=== PATIENT | male | born 1965 | race African-American/Black ===

== ENCOUNTER 2016-09-12 15:21 | Emergency (ER) | payer OTHER ==
--- NOTE | ~2016-09-12 | CR72 ---
[facility] A Service of [facility] RADIOLOGY TEXT RESULTS PATIENT: MELANY LAGOS LOCATION: [facility] : 61 UNIT #: [id number] AGE: [address]: Isaiah Palacios MD SEX: M ORDER DR: [id number] [facility] [address] [place], [place] [address] [id number] E MR#: [id number] Acc #: [id number] NAME: MELANY LAGOS : 1965 SEX: M STUDY DATE/TIME: 09/12/2016 15:27 UNIT: [facility] ROOM: STUDY DESCRIPTION: CR Chest Single View Portable Attending Physician: Isaiah Palacios M.D. Ordering Physician: Ed Doctor [id number] [facility] Primary Care Physician: Primary Care Physician No MEDICAL IMAGING REPORT This report is preliminary unless electronic signature is present EXAM Portable chest x-ray 09/12/2016 HISTORY Weakness. Night sweats, pain in arm, rash over upper torso few weeks duration. Prior history of HIV/AIDS. FINDINGS AP radiograph of the chest is presented. Comparison chest radiograph 06/22/2016, and comparison chest CT 06/24/2016. The heart and mediastinum are normal in size and contour. The lungs are well inflated. Superimposed over the posterior right fourth rib and anterior right second rib, there is a subtle 9 mm nodular density. Not seen on prior chest radiographs and not seen on a CT of the chest dated 06/24/2016. This is probably a superimposition artifact related to pulmonary vessels and bony structures but a true developing nodule in this patient with a history of immune compromise cannot be entirely excluded. Repeat CT examination recommended for clarification. The lungs are otherwise clear. There is no pleural effusion or pneumothorax. Bony structures show no acute abnormality. Dictated by... Ag Aceves M.D. THIS IS AN ELECTRONICALLY VERIFIED REPORT Ag Aceves M.D. at 09/13/2016 6:36 PM Joy TD: 09/12/2016 21:00 JOB #: [id number] [facility] A Service of [facility] & [facility] RADIOLOGY TEXT RESULTS PATIENT: MELANY LAGOS LOCATION: [facility] : 61 UNIT #: [id number] AGE: [address]: Isaiah Palacios MD SEX: M ORDER DR: MEDICAL IMAGING REPORT Page 1 of 1 COPY
--- NOTE | ~2016-09-12 | EKG ---
PATIENT: MELANY LAGOS UNIT #: [id number] Ventricular Rate: 96 BPM Atrial Rate: 96 BPM P-R Interval: 150 ms QRS Duration: 70 ms Q-T Interval: 370 ms QTC Calculation(Bezet): 467 ms P [place]: 79 degrees Calculated R [place]: 66 degrees Calculated T [place]: 66 degrees Diagnosis Line: Normal sinus rhythm Diagnosis Line: Normal ECG Diagnosis Line: When compared with ECG of 29-APR-2016 16:51, Diagnosis Line: Nonspecific T wave abnormality, improved in Diagnosis Line: Lateral leads Diagnosis Line: Confirmed by JAYLENE LIM MD ([id number]) on 09/12/2016 Diagnosis Line: 11:41:18 PM INTERPRETING MD: CARINA ARMENTA
[~2016-09-12 15:21] MED LIST: COMBIVENT U/D3 M2 INH; EMTRIVA200 MG PO; HYDROXYZINE HCL25 M1 PO; KEFLEX500 M2 PO; PREDNISONE PO; ROCEPHIN IV; TOPROL XL PO; ZOLOFT50 MG PO; [UNRECOGNIZED DRUG - OTHER] PO; [UNRECOGNIZED DRUG - OTHER] PO
[2016-09-12 17:15] LABS: BASOPHIL% 0.4 % (0-2.5); DIFF IND YES; EOSINOPHIL# 2.6 X10e3 (0-0.7); EOSINOPHIL% 35.4 % (0.0-7.0); HEMATOCRIT 37.1 % (38.0-50.0); LYMPHOCYTE# 0.6 X10e3 (1.0-3.5); LYMPHOCYTE% 8.7 % (17.0-45.0); MEAN CELL VOLUME 89.8 FL (83-96); MEAN CORPUSCULAR HEMOGLOBIN 29.1 PG (28-34); MEAN CORPUSCULAR HGB CONC 32.4 g/dL (30-36); MEAN PLATELET VOLUME 8.8 FL (6.5-11.5); MONOCYTE# 0.6 X10e3 (0-1.0); MONOCYTE% 8.8 % (3.0-12.0); NEUTROPHIL# 3.4 X10e3 (1.5-7.1); NEUTROPHIL% 46.7 % (40-75); PLATELET COUNT 296 X10e3 (140-420); RED BLOOD COUNT 4.13 X10e (3.90-5.60); RED CELL DISTRIBUTION WIDTH 13.5 % (11.0-15.5); WHITE BLOOD COUNT 7.2 X10e3 (4.0-10.5)
[2016-09-12 17:30] LABS: ALBUMIN SERUM 2.3 g/dL (3.5-5.0); BILIRUBIN, DIRECT 0.2 mg/dL (0.0-0.2); BILIRUBIN,INDIRECT 0.4 mg/dL (0.0-0.9); BILIRUBIN,TOTAL 0.6 mg/dL (0.2-2.0); BUN/CREATININE RATIO 13.75; CALCIUM SERUM 7.6 mg/dL (8.4-10.2); CREATININE SERUM 0.8 mg/dL (0.6-1.4); GLOM FILT RATE Estimated 118.3 mL/min (>60); POTASSIUM 4.8 mmol/L (3.5-5.1); PROTEIN TOTAL SERUM 6.5 g/dL (6.0-8.3)
[2016-09-12 17:40] LABS: PLATELET ESTIMATE NORMAL (NORMAL)
[2016-09-12 18:04] LABS: URINE SOURCE CLEAN CATCH
[2016-09-12 18:15] LABS: URINE APPEARANCE CLEAR; URINE BILIRUBIN NEG (NEG); URINE BLOOD NEG (NEG); URINE COLOR YELLOW; URINE GLUCOSE NEG (NEG); URINE KETONE NEG (NEG); URINE LEUKOCYTE ESTERASE 2+ (NEG); URINE NITRATE NEG (NEG); URINE PROTEIN NEG (NEG); URINE SPECIFIC GRAVITY 1.018 (1.003-1.035)
[2016-09-12 18:18] LABS: CULTURE INDICATED? YES; URBCS1 AUWI 0-2 /[HPF] (0-2); URINE BACTERIA AUWI NEG (NEGATIVE); URINE SQUAMOUS EPITHELIAL CELL OCC /[HPF]
== END 2016-09-12 19:00 | disposition home or self-care (01) ==
LOC: CED 15:21
PROVIDERS: Emergency Medicine
DX: R21 Rash and other nonspecific skin eruption (principal); B20 Human immunodeficiency virus [HIV] disease; J45.909 Unspecified asthma, uncomplicated; I10 Essential (primary) hypertension; F41.9 Anxiety disorder, unspecified; Z79.899 Other long term (current) drug therapy
CPT/HCPCS: 36415; 71010; 80048; 80076; 81003; 82947; 85025; 87086; 93005; 99283

== ENCOUNTER 2016-09-21 16:00 | Emergency (ER) | payer OTHER ==
--- NOTE | ~2016-09-21 | CR72 ---
[facility] A Service of [facility] & [facility] RADIOLOGY TEXT RESULTS PATIENT: MELANY LAGOS LOCATION: [facility] : 61 UNIT #: [id number] AGE: [address]: Lamberto Garcia MD SEX: M ORDER DR: [id number] [facility] [address] [place], [place] [address] [id number] E MR#: [id number] Acc #: [id number] NAME: MELANY LAGOS : 1965 SEX: M STUDY DATE/TIME: 09/21/2016 14:58 UNIT: [facility] ROOM: STUDY DESCRIPTION: CR Chest Single View Portable Attending Physician: Lamberto Garcia M.D. Ordering Physician: Lamberto Garcia M.D. Primary Care Physician: No Primary Care Physician MEDICAL IMAGING REPORT This report is preliminary unless electronic signature is present EXAM Frontal chest 09/21/2016 INDICATIONS 51-year-old male with weakness, shortness of air and confusion. History of HIV positive status and hypertension. Frontal chest compared with 09/12/2016 FINDINGS Cardiac silhouette is within normal limits. Vascularity is unremarkable. Portions of the right lung apex are obscured from view by neck soft tissue artifact. Lung volumes are low. There is no effusion or dense consolidation. No pneumothorax. IMPRESSION Low-volume image otherwise negative frontal chest. Dictated by... Manny Fontana M.D. THIS IS AN ELECTRONICALLY VERIFIED REPORT Manny Fontana M.D. at 09/22/2016 7:30 AM Magaly TD: 09/21/2016 17:40 JOB #: [id number] MEDICAL IMAGING REPORT Page 1 of 1 COPY
--- NOTE | ~2016-09-21 | EKG ---
PATIENT: MELANY LAGOS UNIT #: [id number] Ventricular Rate: 92 BPM Atrial Rate: 92 BPM P-R Interval: 158 ms QRS Duration: 86 ms Q-T Interval: 382 ms QTC Calculation(Bezet): 472 ms P [place]: 78 degrees Calculated R [place]: 59 degrees Calculated T [place]: 50 degrees Diagnosis Line: Normal sinus rhythm Diagnosis Line: Normal ECG Diagnosis Line: When compared with ECG of 19-MAR-2013 13:16, Diagnosis Line: (unconfirmed) Diagnosis Line: T wave amplitude has increased in Inferior leads Diagnosis Line: QT has lengthened Diagnosis Line: Confirmed by JAYLENE LIM MD ([id number]) on 09/22/2016 Diagnosis Line: 6:17:22 AM INTERPRETING MD: CARINA ARMENTA
[2016-09-21 15:16] LABS: BASOPHIL% 0.5 % (0-2.5); EOSINOPHIL# 2.7 X10e3 (0-0.7); EOSINOPHIL% 31.4 % (0.0-7.0); HEMATOCRIT 35.9 % (38.0-50.0); HEMOGLOBIN 11.8 gm/dL (13.0-16.0); LYMPHOCYTE# 0.9 X10e3 (1.0-3.5); LYMPHOCYTE% 10.9 % (17.0-45.0); MEAN CELL VOLUME 87.8 FL (83-96); MEAN CORPUSCULAR HEMOGLOBIN 28.8 PG (28-34); MEAN CORPUSCULAR HGB CONC 32.8 g/dL (30-36); MEAN PLATELET VOLUME 8.1 FL (6.5-11.5); MONOCYTE# 0.7 X10e3 (0-1.0); MONOCYTE% 7.7 % (3.0-12.0); NEUTROPHIL# 4.2 X10e3 (1.5-7.1); NEUTROPHIL% 49.5 % (40-75); PLATELET COUNT 371 X10e3 (140-420); RED BLOOD COUNT 4.09 X10e (3.90-5.60); RED CELL DISTRIBUTION WIDTH 13.2 % (11.0-15.5); WHITE BLOOD COUNT 8.5 X10e3 (4.0-10.5)
[2016-09-21 15:17] LABS: DIFF IND YES
[2016-09-21 15:40] LABS: ALBUMIN SERUM 2.3 g/dL (3.5-5.0); ALKALINE PHOSPHATASE 84 U/L (32-92); ALT (SGPT) 19 U/L (10-40); AST (SGOT) 27 U/L (10-42); BILIRUBIN,TOTAL 0.6 mg/dL (0.2-2.0); BLOOD UREA NITROGEN 13 mg/dL (9-23); BUN/CREATININE RATIO 14.44; CALCIUM SERUM 7.7 mg/dL (8.4-10.2); CARBON DIOXIDE 27 mmol/L (22-31); CHLORIDE 104 mmol/L (100-111); CREATININE SERUM 0.9 mg/dL (0.6-1.4); GLOM FILT RATE Estimated 112.6 mL/min (>60); GLUCOSE FASTING 95 mg/dL (70-110); PROTEIN TOTAL SERUM 6.7 g/dL (6.0-8.3); SODIUM 137 mmol/L (135-145)
[2016-09-21 16:00] LABS: BILIRUBIN, DIRECT <0.1 mg/dL (0.0-0.2); BILIRUBIN,INDIRECT 0.5 mg/dL (0.0-0.9)
[2016-09-21 17:01] LABS: URINE SOURCE CLEAN CATCH
[2016-09-21 17:51] LABS: URINE APPEARANCE CLEAR; URINE BILIRUBIN NEG (NEG); URINE BLOOD NEG (NEG); URINE COLOR DK YELLOW; URINE GLUCOSE NEG (NEG); URINE KETONE TRACE (NEG); URINE LEUKOCYTE ESTERASE 2+ (NEG); URINE NITRATE NEG (NEG); URINE PH 5.5 (5-8); URINE PROTEIN TRACE (NEG); URINE SPECIFIC GRAVITY 1.031 (1.003-1.035)
[2016-09-21 17:55] LABS: CULTURE INDICATED? YES; URBCS1 AUWI 0-2 /[HPF] (0-2); URINE BACTERIA AUWI NEG (NEGATIVE); URINE SQUAMOUS EPITHELIAL CELL OCC /[HPF]; UWBCS1 AUWI 25-50 (0-5)
[2016-09-21 18:41] LABS: ANISOCYTOSIS SL; PLATELET ESTIMATE NORMAL (NORMAL)
== END 2016-09-21 18:24 | disposition home or self-care (01) ==
LOC: CED 16:00
PROVIDERS: Emergency Medicine
DX: R53.1 Weakness (principal); R19.7 Diarrhea, unspecified; M79.89 Other specified soft tissue disorders; I10 Essential (primary) hypertension; Z98.890 Other specified postprocedural states
CPT/HCPCS: 36415; 71010; 80048; 80076; 81003; 82947; 85025; 87086; 93005; 96360; 99284

== ENCOUNTER 2016-12-20 13:41 | Emergency (ER) | payer OTHER ==
--- NOTE | ~2016-12-20 | CR72 ---
[facility] A Service of [facility] & [facility] RADIOLOGY TEXT RESULTS PATIENT: MELANY LAGOS LOCATION: [facility] : 61 UNIT #: [id number] AGE: [address]: Gutierrez Babin MD SEX: M ORDER DR: [id number] [facility] [address] [place], [place] [address] [id number] E MR#: [id number] Acc #: [id number] NAME: MELANY LAGOS : 1965 SEX: M STUDY DATE/TIME: 12/20/2016 16:40 UNIT: [facility] ROOM: STUDY DESCRIPTION: CR Chest Single View Portable Attending Physician: Gutierrez Babin M.D. Ordering Physician: Gutierrez Babin M.D. MEDICAL IMAGING REPORT This report is preliminary unless electronic signature is present EXAM Portable chest 12/20/2016 HISTORY Shortness breath and chest pain beginning today. Benign essential hypertension. FINDINGS A single AP portable view of the chest shows both lungs to be clear. The heart is normal in size. The mediastinal contour is normal. No significant bone abnormalities are seen. IMPRESSION Normal portable chest. Dictated by... Michael Holley M.D. THIS IS AN ELECTRONICALLY VERIFIED REPORT Michael Holley M.D. at 12/21/2016 2:26 PM KRT/pcl TD: 12/20/2016 20:00 JOB #: [id number] MEDICAL IMAGING REPORT Page 1 of 1 COPY
--- NOTE | ~2016-12-20 | EKG ---
PATIENT: MELANY LAGOS UNIT #: [id number] Ventricular Rate: 98 BPM Atrial Rate: 98 BPM P-R Interval: 152 ms QRS Duration: 70 ms Q-T Interval: 368 ms QTC Calculation(Bezet): 469 ms P [place]: 60 degrees Calculated R [place]: 63 degrees Calculated T [place]: 69 degrees Diagnosis Line: Normal sinus rhythm Diagnosis Line: Normal ECG Diagnosis Line: When compared with ECG of 21-SEP-2016 15:31, Diagnosis Line: No significant change was found Diagnosis Line: Confirmed by KONRAD BARNEY M[facility]ER[facility] HOSPITALDESIR[facility] ([id number]) on Diagnosis Line: 12/21/2016 10:40:00 AM INTERPRETING MD: SAVITA ARMENTA
[2016-12-20 18:42] LABS: BASOPHIL# 0.1 X10e3 (0-0.3); EOSINOPHIL# 2.5 X10e3 (0-0.7); EOSINOPHIL% 32.3 % (0.0-7.0); HEMOGLOBIN 11.1 gm/dL (13.0-16.0); LYMPHOCYTE# 0.8 X10e3 (1.0-3.5); MEAN CELL VOLUME 86.1 FL (83-96); MEAN CORPUSCULAR HEMOGLOBIN 27.3 PG (28-34); MEAN CORPUSCULAR HGB CONC 31.7 g/dL (30-36); MEAN PLATELET VOLUME 8.5 FL (6.5-11.5); MONOCYTE# 0.7 X10e3 (0-1.0); MONOCYTE% 9.2 % (3.0-12.0); NEUTROPHIL# 3.5 X10e3 (1.5-7.1); NEUTROPHIL% 46.5 % (40-75); PLATELET COUNT 327 X10e3 (140-420); RED BLOOD COUNT 4.06 X10e (3.90-5.60); RED CELL DISTRIBUTION WIDTH 13.8 % (11.0-15.5); WHITE BLOOD COUNT 7.6 X10e3 (4.0-10.5)
[2016-12-20 18:43] LABS: DIFF IND YES
[2016-12-20 18:48] LABS: POC - CKMB 1.6 ng/mL (0.0-7.9); POC - TROPONIN <0.05 ng/mL (<=0.05)
[2016-12-20 19:00] LABS: BILIRUBIN, DIRECT 0.1 mg/dL (0.0-0.2); BILIRUBIN,INDIRECT 0.5 mg/dL (0.0-0.9); BILIRUBIN,TOTAL 0.6 mg/dL (0.2-2.0); CALCIUM SERUM 7.7 mg/dL (8.4-10.2); GLOM FILT RATE Estimated 99.2 mL/min (>60); POTASSIUM 3.8 mmol/L (3.5-5.1); PROTEIN TOTAL SERUM 6.8 g/dL (6.0-8.3)
[2016-12-20 19:06] LABS: ANISOCYTOSIS SL; PLATELET ESTIMATE NORMAL (NORMAL); RBC NORMAL YES
== END 2016-12-20 19:28 | disposition home or self-care (01) ==
LOC: CED 13:41
PROVIDERS: Emergency Medicine
DX: J45.901 Unspecified asthma with (acute) exacerbation (principal); L30.9 Dermatitis, unspecified; I10 Essential (primary) hypertension; F41.8 Other specified anxiety disorders; Z21 Asymptomatic human immunodeficiency virus [HIV] infection status
CPT/HCPCS: 36415; 71010; 80048; 80076; 82553; 84484; 85025; 93005; 94640; 99285